=== PATIENT | male | born 1975 | race Caucasian/White ===

== ENCOUNTER → 2016-10-04 | Day surgery (SDC) | payer OTHER ==
[~2016-10-04] VITALS: Ht 180.3 cm; Wt 86.2 kg
--- NOTE | 2016-10-04 09:38 | Operative Report ---
Operative/Inv Procedure Report Surgery Date: 10/04/16 Name of Procedure: Right hip arthroscopy, labral repair, femoroplasty Pre-Operative Diagnosis: Right hip labral tear Post-Operative Diagnosis: Right hip labral tear Estimated Blood Loss: rosa elena Surgeon/Bsa Officer: SHAYY VICKERS,OBI COFFMAN Anesthesia: general endotracheal tube Complications: None Condition: Stable to PACU Operative Indication: This is a 40-year-old male with bilateral hip pain. MRI showed a right hip labral tear. Risks and benefits of the procedure were discussed with the patient at length. Risks include but are not limited to nerve damage, muscle damage, infection, blood loss, blood clots, pulmonary embolus, and even . The patient agreed to the above risks and elected to proceed with surgery. Operative/Procedure Note Note: The patient was taken to the operating room and placed supine on the operating room table. General anesthesia was induced by the anesthesia team. The patient received IV antibiotics prior to incision. A timeout was performed prior to incision. The site marking was visualized prior to the incision. The patient was positioned on the hip table and the perineum was positioned up against a well-padded post. X-rays were taken to ensure adequate positioning and distraction of the extremity. The hip was prepped and draped in the normal sterile fashion. Traction was then applied. A spinal needle was used to enter the hip joint under x-ray guidance in the lateral portal position just anterior to the greater trochanter. An air arthrogram was established. The hip joint was insufflated with saline. The spinal needle was removed from the hip joint. This allowed the spinal needle to be reinserted through the capsule while avoiding the labrum. A wire was then inserted through the spinal needle. Over the wire a cannula was inserted. The scope was then inserted and under direct visualization an anterolateral portal was then established with a spinal needle. This was made just lateral to a sagittal line drawn down from the ASIS. A [employer] [place] [employer] blade was then inserted and a capsulotomy was performed connecting the 2 portals. The capsule was debrided with a shaver. Any bleeding vessels were identified and cauterized. The diagnostic arthroscopy was then performed which showed the above findings. A [employer] [place] [employer] [place] blade was then inserted and the labrum was further let down from the acetabular rim. The shaver was used to debride the soft tissue deep to the labrum and to expose the bony acetabulum. A switching stick was then inserted and the bur was assembled over the switching stick. The bur was then used to decorticate the acetabulum. The bony resection started centrally at the superior acetabulum and then was tapered medially and laterally. This was performed to create a smooth, normal acetabular transition. Care was taken to protect the labrum during bony resection. X-rays were taken to ensure adequate bony resection. Next the acetabulum was drilled to place an anchor. The drill guide was used to drill while the chondral surface was visualized to ensure no violation of the chondral surface occurred. The anchor was then placed. The arthro-Lennon was then used to shuttle the suture. This was then tied down with a locking knot and several half hitches. The excess suture was cut. This process was repeated. A second anchor that was placed pulled out due to soft bone. A total of three 2.3 mm osteoraptor anchors were implanted. The labrum was then probed and noted to be quite stable. This was then further stabilized with an RF device. The shaver was used to perform chondroplasty over the anterior superior and posterior superior aspect of the acetabulum. The traction was then let down and the hip was flexed up to 45 degrees. The 30 degree scope was then used. A more proximal portal was established with a spinal needle just proximal to the greater trochanter. A spinal needle was inserted and a wire was then shuttled through the spinal needle. An 11 blade was used to incise a skin. A dilator was then placed over the wire. The soft tissue off the superior aspect of the femoral head neck junction was then taken down. The bur was then inserted and the femoroplasty was begun proximally. X- rays were taken to ensure adequate bony resection. The camera and the bur were then switched and further femoroplasty was begun to ensure a smooth normal transition from the femoral head down to the neck. Final x-rays were taken to ensure adequate femoroplasty. The hip joint was copiously irrigated. All instruments were removed. The portal sites were closed with 3-0 nylon suture in a simple interrupted fashion and the hip joint was insufflated with 20 mL of 0.25% percent Marcaine. A dry sterile dressing was applied and the patient was transferred to PACU in stable condition. Findings: Tearing of the anterior superior labrum. Posterior labrum intact. Softening throughout the acetabular articular cartilage with an area of grade 4 chondral changes of the posterior superior aspect. Ligamentum teres intact. Femoral head articular cartilage intact. Large cam lesion present.
--- NOTE | 2016-10-04 14:03 | RADIOLOGY REPORT ---
EXAMINATION: Intraoperative fluoroscopy CLINICAL INFORMATION: Intraoperative fluoroscopy utilized for hip arthroscopy. COMPARISON: None TECHNIQUE: Intraoperative fluoroscopy provided for Dr. Nicole during a right hip arthroscopy. 5 images were saved to PACS. Total fluoroscopic time: 43 seconds FINDINGS/IMPRESSION: Intraoperative fluoroscopy provided for Dr. Nicole during a right hip arthroscopy. Please see operative note for detailed findings.
== END ==
LOC: STS 01:01
DX: M25.851 Other specified joint disorders, right hip (principal); M25.551 Pain in right hip; M25.552 Pain in left hip; F17.200 Nicotine dependence, unspecified, uncomplicated
CPT/HCPCS: 73501; J0131; J0171; J0690; J2250

== ENCOUNTER 2017-11-01 07:23 | Emergency (ER) | payer OTHER ==
[~2017-11-01] VITALS: Ht 180.3 cm; Wt 83.9 kg
--- NOTE | 2017-11-01 07:58 | ED SKIN/ALLERGY COMPLAINT ---
See Addendum History of Present Illness General Chief Complaint: Allergy Symptoms Stated Complaint: SENT BY DR MARINELLI FOR RX TO MED Source: patient Vital Signs & Intake/Output Vital Signs & Intake/Output Vital Signs Date Time Temp Pulse Resp B/P B/P Pulse O2 O2 Flow FiO2 Mean Ox Delivery Rate 11/01 0928 90 18 140/80 99 Room Air 11/01 0747 99 Room Air 11/01 0736 98.3 103 18 156/99 98 Room Air Triage Note: 41 YO MALE TO TRIAGE C/O ?RXN TO BACTRIM. STATES HE STARTED TAKING IT ON SATURDAY AND SINCE THEN HE HAS NOTICIED SWELLING TO TOUNGE AND FACE. NO RESP DISTRESS NOTED, PT SPEAKING IN FULL, CLEAR SENTANCES. RA SATS 98%. STATES LAST DOSE OF BENADRYL WAS YESTERDAY. Triage Nurses Notes Reviewed? yes Onset: Abrupt Duration: day(s): Timing: recent history Severity: mild Location: face Possible Factors: medications HPI: 41yoM, otherwise healthy presenting w/ an allergic rxn after started taking Bactrim. Patient was dx w/ epidydimitis 5days ago and was started on Bactrim DS. He started experiencing left mouth tingling and discomfort after taking 2 doses. He also broke out in hives that spontaneously resolved. He called his PCP who asked him to stop Bactrim and switch to Doxy 100 BID when his sx resolve. Sx have been getting worse. Yesterday and today, he has developed lip swelling, tongue swelling, throat discomfort and pain. He is able to breath but feels his throat is tightening up. He has tried some Benadryl but thinks it makes him drowsy and tired He denies any change in foods, laundry detergents or body spray. He also denies any seasonal allergies, fevers, chills, N/V. He is not on any other medications. He smokes 1/2 cigs daily (Opare-Zachariah STUDENT,Jamarcus) General Exam Limitations: no limitations Allergies Coded Allergies: Sulfa (Sulfonamide Antibiotics) (Severe, ANGIODEMA 11/01/17) Reconcile Medications Prednisone 10 MG TABLET 1 TAB PO DAILY ALLERGIC REACTION TAKE 3 TABS FOR 3 DAYS THEN TAKE 2 TABS FOR 3 DAYS THEN TAKE 1 TAB FOR 3 DAYS Sulfamethoxazole/Trimethoprim (Sulfamethoxazole-Tmp Ds Tablet) 800 MG-160 MG TABLET 1 TAB PO BID ANTIBIOTIC, INFECTION (Reported) (Rakel VICKERS,Carl Matute) Past History Travel History Traveled to [place] past 21 day No Medical History Any Pertinent Medical History? see below for history Neurological: NONE EENT: NONE Cardiovascular: NONE Respiratory: NONE Gastrointestinal: NONE Hepatic: NONE Renal: NONE Musculoskeletal: NONE Psychiatric: NONE Endocrine: NONE Blood Disorders: NONE Cancer(s): NONE Psychosocial History What is your primary language Libyan Tobacco Use: Current Daily Use Daily Tobacco Use Amount/Type: => 5 Cigarettes daily Family History Hx Contributory? No (Jamarcus Norman) Surgical History Surgical History: non-contributory (Rakel VICKERS,Carl Matute) Review of Systems Review of Systems Constitutional: Reports: no symptoms. Denies: chills, diaphoresis, fever, malaise, weakness. EENTM: Reports: see HPI. Respiratory: Reports: no symptoms. Denies: cough, wheezing. Cardiovascular: Reports: no symptoms. GI: Reports: no symptoms. Genitourinary: Reports: no symptoms. Musculoskeletal: Reports: no symptoms. Skin: Reports: no symptoms. Neurological/Psychological: Reports: no symptoms. (Jamarcus Norman) Physical Exam Physical Exam General Appearance: well developed/nourished, no apparent distress, alert, awake , anxious Head: atraumatic Eyes: Bilateral: normal appearance, PERRL. Ears, Nose, Throat: normal pharynx, normal ENT inspection, moist mucus membranes , L upper lip swelling Neck: tender lateral Respiratory: normal breath sounds, chest non-tender Cardiovascular: regular rate/rhythm Peripheral Pulses: 4+ radial (R), 4+ radial (L) Gastrointestinal: normal bowel sounds Rectal: deferred Skin: intact (Jamarcus Norman) Progress Differential Diagnosis: allergic reaction, anaphylaxis, angioedema, drug reaction Plan of Care: Current Medications Sig/David Start time Last Medication Dose Stop Time Status Admin Diphenhydramine HCl 25 MG ONCE ONE 11/01 814 AC (Benadryl) 11/02 815 Famotidine 20 MG ONCE ONE 11/01 814 AC (Pepcid) 11/02 815 Prednisone 60 MG ONCE ONE 11/01 814 AC 11/02 815 8:00AM Patient w/ an allergic rxn consistent with angioedema likely from Sulfur from Bactrim. He however does not have an anaphylaxic rxn since he has no systemic sx. He is currently breathing well, satting fine on RA, and handling his secretions appropriately. He has no muffled voice or drooling. He does not have any oral lesions ruling out SJS/TEN or herpes/shingles. Patient will be treated for angioedema with Benadryl, Famotidine and Prednisone and observed here for a couple of hours and reassesed afterwards. 9:00AM Patient endorsing interval improvement in sx He will be discharged w/ steroids Initial ED EKG: none (Jamarcus Norman) Departure Departure Condition: Stable Clinical Impression Primary Impression: Angioedema of lips Secondary Impressions: Allergy to sulfa drugs Referrals: Nestor Marinelli MD (PCP/Family) Additional Instructions: Please avoid Sufla drugs. You are allergic to them. Keep taking Benadryl, Prednisone and Famotidine. Don't drive while taking benadryl since it will make you dizzy Start taking Doxycycline for Epidydimitis and follow up with your PCP Return if worse or have any other concerns Departure Forms: Customer Survey General Discharge Information (Jamarcus Norman) Departure Disposition: HOME OR SELF CARE Prescriptions: Current Visit Scripts Prednisone 1 TAB PO DAILY #18 TAB TAKE 3 TABS FOR 3 DAYS THEN TAKE 2 TABS FOR 3 DAYS THEN TAKE 1 TAB FOR 3 DAYS Resident Co-Sign Statement Statement: ED Attending supervision documentation- [X] I saw and evaluated the patient. I have also reviewed all the pertinent lab results and diagnostic results. I agree with the findings and the plan of care as documented in the Resident's documentation. [X] I have reviewed the ED Record and agree with the Resident's documentation. [] Additions or exceptions (if any) to the Resident's note and plan are summarized below: [The patient is having allergic reaction to Bactrim. Patient's last dose of Bactrim was Saturday morning. Patient continues to have oropharyngeal edema. There is no difficulty breathing or swallowing. He says he occasionally breaks out in urticarial type rash but there are no ulcerations. On exam there is no oral lesions. There is no evidence of either [employer] or TEN. Patient given steroids and observed in the emergency department. Patient is stable for discharge.] (Rakel VICKERS,Carl Matute)
[2017-11-01] MEDS ORDERED: SULFAMETHOXAZO1 EAC1 PO (08:06)
[2017-11-01] MEDS ORDERED: PREDNISONE10 M2 PO (08:42)
[2017-11-01 09:28] VITALS: BP 140/80
== END 2017-11-01 09:28 ==
LOC: ERH 07:23
DX: T78.3XXA Angioneurotic edema, initial encounter (principal); T37.0X5A Adverse effect of sulfonamides, initial encounter

== ENCOUNTER → 2018-03-18 | Day surgery (SDC) | payer OTHER ==
[~2018-03-18] VITALS: Ht 180.3 cm; Wt 86.2 kg
[~2018-03-18] MED LIST: PREDNISONE10 M2 PO; SULFAMETHOXAZO1 EAC1 PO
[2018-03-18 09:00] LABS: ABSOLUTE BASOPHIL COUNT 0 /CUMM (0.0-0.2); ABSOLUTE EOSINOPHIL COUNT 0.1 /CUMM (0.0-0.7); ABSOLUTE GRANULOCYTE CT 2.8 /CUMM (1.4-6.5); ABSOLUTE LYMPH COUNT 2.1 /CUMM (1.2-3.4); ABSOLUTE MONOCYTE COUNT 0.7 /CUMM (0.10-0.60); BASOPHIL % 0.8 % (0.0-2.0); EOSINOPHIL % 1.7 % (0-5); GRANULOCYTE % 49.5 % (42.2-75.2); HEMATOCRIT 46.6 % (42-52); MEAN CORPUSCULAR HGB 31.4 PG (27.0-31.0); MEAN CORPUSCULAR HGB CONC 34.8 G/DL (33.0-37.0); MEAN CORPUSCULAR VOLUME 90.3 FL (80.0-94.0); MEAN PLATELET VOLUME 7.5 FL (7.4-10.4); PLATELET COUNT 296 /CUMM (130-400); RBC DISTRIBUTION WIDTH 12.7 % (11.5-14.5); RED BLOOD CELL CT 5.16 /CUMM (4.70-6.10); WHITE BLOOD CELL COUNT 5.7 /CUMM (4.8-10.8)
--- NOTE | 2018-03-19 09:33 | RADIOLOGY REPORT ---
EXAMINATION: FLUOROSCOPY AND SPOT FILMS PROVIDED IN THE OR DURING CYSTOSCOPY CLINICAL INFORMATION: Renal colic. COMPARISON: CT pelvis 02/28/2018. TECHNIQUE: 0.4 minutes of fluoroscopy time was provided in the operating room. 9 images were submitted. FINDINGS: Spot films of both kidneys show no pelvocaliectasis. On what appears to be the left (the films are not labeled as to side) there may be some tubular backflow in the upper pole. IMPRESSION: Fluoroscopy provided in OR as described above.
--- NOTE | 2018-03-25 08:29 | Operative Report ---
Operative/Inv Procedure Report Surgery Date: 03/18/18 Name of Procedure: cystoscopy: bilateral retrograde pyelogram: fluroroscopy: right flexible ureteroscopy Pre-Operative Diagnosis: bilateral colic with mild right hydro. Post-Operative Diagnosis: same Estimated Blood Loss: scant Surgeon/Publication Designer: Drew Capellan MD Anesthesia: laryngeal mask airway Drains: none Complications: none Operative/Procedure Note Note: The patient was taken to the operating room and placed on the OR table in supine position. Time out was performed, with the patient awake, to confirm correct identity, laterality, procedure, and other pertinent intra-operative information. After adequate anesthesia and antibiotics, the patient was then placed lithotomy stirrups draped and prepped in the usual surgical fashion. A 22 Khmer cystoscope sheath with a 30 angle lens was inserted without difficulty. Upon entering the bladder, the bladder was noted to be free of tumor free of stone, with both orifices in their orthotopic position. Bilateral clear efflux of urine was seen from both orifices. The left orifice was intubated with an open ended ureteral catheter and retrograde pyelogram was performed revealing no stone/tumor and brisk excretion of contrast material. After removing the catheter from the left side, the right orifice was intubated, and retrograde pyelogram was performed on the right side. There was no filling defect on the right side as well, with brisk efflux of contrast. The right orifice was intubaed by a 0.035 Glidewire, which was advanced into the right renal pelvis without difficulty. Correct placement was confirmed on fluoroscopy. Leaving the Glidewire in place, and the flexible ureteroscope was rail-roaded over the gluidewire into the bladder. The flexible ureteroscope was then advanced up the right ureter with fluoroscopy visualization, following the gluidewire. Pyeloscopy and calyxoscopy, of the upper, middle, and lower poles reveal no evidence of tumor, no evidence of stone. Additionally, no stones, nor any tumor was visualized in the renal pelvis. The entire length of the ureter was also visualized carefully on the way out revealing NO stones, and NO stricture, and NO tumor the right ureter. The standby laser was then powered off. Having found NO signficant pathology on either side, the cystoscope was then reinserted into the bladder. The bladder was then hydrodistended 2 with the irrigation fluid at 40 cm above the symphysis pubis. No increased petechiae was noted. No Hunner's ulceration was noted. There was no terminal bleed. After completing the retrograde pyelograms bilaterally, right ureteroscopy, and the hydrodistention, the bladder was then drained and the cystoscope was removed. All sponge, needle, and instrument count were correct at the end of the case. The patient tolerated the procedure well, and was then taken to the recovery room in satisfactory condition. The patient is to be discharged home to follow up in few weeks time for re-evaluation and plans. Discharge Disposition: PACU CC: Derw Capellan MD
== END ==
LOC: STS 01:44
PROVIDERS: Urology
DX: N23 Unspecified renal colic (principal); N13.30 Unspecified hydronephrosis; F17.200 Nicotine dependence, unspecified, uncomplicated; M19.90 Unspecified osteoarthritis, unspecified site
CPT/HCPCS: 36415; 76000; J2250